=== PATIENT | female | born 1945 | race Caucasian/White ===

== ENCOUNTER 2019-05-13 11:57 | Inpatient (IN) | payer OTHER ==
[~2019-05-13] VITALS: Ht 162.6 cm; Wt 126.1 kg
[2019-05-13 12:00] VITALS: Ht 162.6 cm; Wt 126.1 kg
--- NOTE | 2019-05-13 12:05 | NUR ---
PT BIBA FROM HOME WITH CO SOB. PER PT SHE HAS BEEN FEELING SOB OVER THE LAST 3 DAYS AND TODAY WAS THE WORST DAY. PT USES BABY POWDER TO SKIN FOLDS WHERE HER ECZEMA IS AND BELIEVES " IT GOT INTO MY LUNGS." AT THIS TIME PT IS AWAKE AND ALERT. BREATHING EVEN AND UNLABORED AND ABLE TO SPEAK IN FULL SENTENCES. LUNG SOUNDS CLEAR. PT HAS HX OF COPD AND CHF. PT HAS REDNESS WHICH PT STAETS IS HER ECZEMA WHICH IS BEING TREATED AT HOME WITH CREAM THAT PT APPLIES TO SELF. PT STATES IS STARTING TO LOOK BETTER. PT ALSO TREATS IT WITH BABY POWDER. PT IS HOOKED UP TO FULL MONITORS, SIDE RAILS UP, CALL LIGHT IN REACH, WILL CONTINUE TO MONITOR.
--- NOTE | 2019-05-13 14:00 | NUR ---
PT STATES SHE IS FEELING BETTER AFTER THE BREATHING TX.
[2019-05-13 14:09] LABS: BASOPHIL % 0.8 % (0-2); CALCIUM 8.4 mg/dL (8.5-10.1); CARBON DIOXIDE 29.5 mmol/L (21-32); CHLORIDE SERUM 103 mmol/L (98-107); CREATININE SERUM 0.9 mg/dL (0.6-1.0); GLUCOSE SERUM 116 mg/dL (74-106); PLATELET COUNT 310 x10^3mcL (130-400); POTASSIUM SERUM 3.6 mmol/L (3.5-5.1); SODIUM SERUM 142 mmol/L (136-145)
[2019-05-13 14:14] LABS: ALKALINE PHOSPHATASE 103 U/L (46-116); ALT/SGPT 19 U/L (14-59); AST/SGOT 17 U/L (15-37); BILIRUBIN TOTAL 0.5 mg/dL (0.20-1.00); TOTAL PROTEIN, SERUM 7.2 g/dL (6.4-8.2)
[2019-05-13 14:35] LABS: RED CELL DISTRIBUTION WIDTH 16.2 % (11.5-14.5)
[2019-05-13] MEDS ORDERED: SYNTHROID0.15 MG PO (16:13)
[2019-05-13] MEDS ORDERED: LOSARTAN POTAS100 M1 PO (16:13)
[2019-05-13] MEDS ORDERED: AMLODIPINE BES2.5 M1 PO (16:14)
[2019-05-13] MEDS ORDERED: METOPROLOL TART25 M1 PO (16:14)
[2019-05-13] MEDS ORDERED: HYDROCHLOROTH12.5 M2 PO (16:15)
[2019-05-13] MEDS ORDERED: PEPCID20 MG PO (16:15)
[2019-05-13] MEDS ORDERED: IBUPROFEN400 MG PO (16:16)
--- NOTE | 2019-05-13 16:36 | NUR ---
REPORT GIVEN TO YULISSA COUGHLIN ON MS.T FOR FURTHER CARE OF PT
--- NOTE | 2019-05-13 16:49 | NUR ---
DR THOMPSON AID PT CAN GO UPSTAIRS WITHOUT UDS
[2019-05-13 18:54] VITALS: BP 161/75
--- NOTE | 2019-05-13 19:07 | NUR ---
RECEIVED PT FROM ER, PT ADMIT FOR ASTHMA EXACERBATION, PT IS A/O X4, VERBAL RESPONSIVE, ABLE TO TELL WHAT SHE NEEDS. LUNG SOUND DIM SOMMER, DENY ANY SOB AT THIS MOMENT, PO2 94% IN ROOM AIR. PT IS ON TELE 4, NSR, DENY ANY CHEST PAIN OR DISCOMFORT, BOWEL SOUND PRESENT ALL 4 QUADRANTS, NO DISTENTION, PEDAL PULSE PRESENT BOTH FEET, +1 EDEMA BLE. THERE IS ERYTHEMA AT ABD FOLD AND RADIATE TO BACK. IV AT LEFT WRIST, NO LEAKING, NO INFILTRAITON. ALL ADLS ASSIST, ALL NEED MET, CALL LIGHT IN REACH, WILL CONTINUE TO MONITOR.
--- NOTE | 2019-05-13 20:18 | NUR ---
PT RECIEVED FROM DAY NURSE. PT RESTING IN BED COMFORTABLY AT THIS TIME. DENIES PAIN OR DISCOMFORT. A/O X4, CALM AND COOPERATIVE AT THIS TIME. TELE 4, NSR. DENIES CP, N/V, DIZZINESS, OR PALPATATIONS. PALPABLE PUSLES, +1 PITTING EDEMA NOTED BLE. BREATHING EVEN AND UNLABORED ON RA. SPO2 96%. DENIES SOB AT THIS TIME. ABD SOFT AND ROUND, DENIES PAIN TO PALPATION. GENERALIZED WEAKNESS, AMBULATES WITH CANE. ERYTHEMA NOTED TO ABD FOLDS, RADIATES TO BACK AND BLE. IV TO LW, CDI. BED AT LOWEST POSITION. CALL LIGHT WITHIN REACH. WILL CONTINUE TO MONITOR.
[2019-05-13 22:10] VITALS: BP 152/98
[2019-05-13 22:20] VITALS: BP 152/98
--- NOTE | 2019-05-14 02:21 | NUR ---
PT RESTING IN BED AT THIS TIME. NO S/S OF PAIN OR DISTRESS NOTED. BED AT LOWEST POSITION. CALL LIGHT WITHIN REACH. WILL CONTINUE TO MONITOR. PT MED REC COMPLETE, CONTINUED MOST HOME MEDS PER . SEE EMAR.
[2019-05-14 06:46] VITALS: BP 123/44
--- NOTE | 2019-05-14 06:52 | NUR ---
PT RESTING AT SIDE OF BED COMFORTABLY AT THIS TIME. DENIES PAIN OR DISCOMFORT. ALL NEEDS MET THIS SHIFT. BED AT LOWEST POSITION. WILL ENDORSE TO DAY NURSE.
--- NOTE | 2019-05-14 07:20 | NUR ---
RECEIVED PT FROM BASIM RN. PT SITTING AT SIDE OF BED. AA/OX4. NO COMPLAINT OF PAIN. NO S/S OF ACUTE RESPIRATORY DISTRESS ON ROOM AIR. RR EVEN/UNLABORED AT THIS TIME. NO COUGH. SPEECH CLEAR. NO S/S OF ACUTE DISTRES. FALL PRECAUTIONS IN PLACE. INSTRUCTED TO USE CALL LIGHT TO CALL FOR ASSISTANCE PRN. VERBALIZED UNDERSTANDING. IV WNL TO LW, SALINE LOCKED. BED IN LOW POSITION. CALL LIGHT WITHIN REACH. SIDE RAILS UP X2. WILL CONTINUE TO MONITOR.
[2019-05-14 07:27] LABS: ALKALINE PHOSPHATASE 100 U/L (46-116); ALT/SGPT 16 U/L (14-59); AST/SGOT 12 U/L (15-37); BILIRUBIN TOTAL 0.48 mg/dL (0.20-1.00); CALCIUM 8.1 mg/dL (8.5-10.1); CARBON DIOXIDE 27.4 mmol/L (21-32); CHLORIDE SERUM 107 mmol/L (98-107); CREATININE SERUM 0.9 mg/dL (0.6-1.0); GLUCOSE SERUM 126 mg/dL (74-106); POTASSIUM SERUM 3.4 mmol/L (3.5-5.1); SODIUM SERUM 145 mmol/L (136-145); TOTAL PROTEIN, SERUM 6.9 g/dL (6.4-8.2)
[2019-05-14 07:30] LABS: ALBUMIN 2.8 g/dL (3.4-5.0)
[2019-05-14 08:15] VITALS: BP 125/67
[2019-05-14 08:22] VITALS: BP 131/61
--- NOTE | 2019-05-14 12:15 | NUR ---
PT SITTING IN CHAIR AT SIDE OF BED. ASSISTED PT TO AMBULATE. GAIT SLOW/STEADY. TOLERATED ACTIVITY WELL. NO S/S OF ACUTE DISTRESS. NO SOB ON ROOM AIR. NO COMPLAINT OF PAIN. NO N/V. NO CHEST PAIN. NO CHILLS. NO FEVER. AA/OX4. CALL LIGHT WITHIN REACH. WILL CONTINUE TO MONITOR.
[2019-05-14] MEDS ORDERED: ZITHROMAX1 GM/Packe PO (12:17)
[2019-05-14 12:21] VITALS: BP 122/50
--- NOTE | 2019-05-14 12:39 | NUR ---
BLOOD CULTURE GRAM POSITIVE COCCI, DR. BATRES AWARE. TELEPHONE ORDERS RECEIVIED FOLLOWS: VANCOMYCIN 1G IV ONE TIME, PHARMACY TO DOSE AFTER. ORDERS REPEATED BACK TO PHYSICIAN, VERIFIED. ENTERED. WILL CARRY OUT.
[2019-05-14 16:25] VITALS: BP 140/61
--- NOTE | 2019-05-14 18:33 | NUR ---
PT SITTING IN CHAIR AT SIDE OF BED EATING DINNER. AA/OX4. AMBULATORY TO RESTROOM, GAIT STEADY. VOID X1. NO S/S OF ACUTE DISTRESS. NO COMPLAINT OF PAIN. NO SOB ON ROOM AIR. NO N/V. NO BOOTH. NO DIZZINESS. CALM/COOPERATIVE. FALL PRECAUTIONS IN PLACE. IV LEAKING TO LW, PT COMPLAINT OF PAIN AT SITE, IV REMOVED, CATHETER IN TACT. PRESSURE APPLIED. IV INSERTED TO RH, 22 GAUGE. PATENT WITH BLOOD RETURN. IV ANTIBIOTICS RUNNING. CALL LIGHT WITHIN REACH. WILL ENDORSE TO ONCOMING SHIFT.
[2019-05-14 19:19] VITALS: BP 114/54
--- NOTE | 2019-05-14 19:20 | NUR ---
RECIEVED PT IN NO ACUTE DISTRESS. AOX4. TELE #4, SR. BREATHING E/U ON RA. DENIES SOB. DERMATITIS/ERYTHEMA NOTED TO BACK FOLDS, ABD FOLDS, AND PERINEAL AREA. SL TO RH, PATENT. DENIES PAIN. BED IN LOWEST POSITION, 2 SIDE RAILS UP, CALL LIGHT IN REACH. INSTRUCTED TO CALL FOR ASSISTANCE.
--- NOTE | 2019-05-15 02:00 | NUR ---
RESTING IN BED WITH EYES CLOSED. BREATHING E/U. NO ACUTE DISTRESS NOTED. WILL CONTINUE TO MONITOR.
[2019-05-15 05:45] VITALS: BP 116/49
--- NOTE | 2019-05-15 06:01 | NUR ---
PT DENIES SOB OVERNIGHT. NO ACUTE DISTRESS NOTED. NO ACUTE CHANGES. WILL ENDORSE TO ONCOMING RN.
[2019-05-15 06:56] LABS: ALKALINE PHOSPHATASE 88 U/L (46-116); ALT/SGPT 17 U/L (14-59); AST/SGOT 13 U/L (15-37); BILIRUBIN TOTAL 0.37 mg/dL (0.20-1.00); CALCIUM 8.2 mg/dL (8.5-10.1); CARBON DIOXIDE 29.5 mmol/L (21-32); CHLORIDE SERUM 105 mmol/L (98-107); CREATININE SERUM 0.9 mg/dL (0.6-1.0); GLUCOSE SERUM 167 mg/dL (74-106); MAGNESIUM 1.8 mg/dL (1.8-2.4); POTASSIUM SERUM 3.1 mmol/L (3.5-5.1); SODIUM SERUM 143 mmol/L (136-145); TOTAL PROTEIN, SERUM 6.5 g/dL (6.4-8.2)
[2019-05-15 07:03] LABS: ALBUMIN 2.6 g/dL (3.4-5.0)
--- NOTE | 2019-05-15 07:26 | NUR ---
HANDOFF REPORT RECEIVED FROM RN KANDIS. PATIENT AWAKE SITTING UP AT BEDSIDE. EUPNEIC. DENIES ANY SHORTNESS OF BREATH. CALL COYNE WITHIN REACH. INSTRUCTED TO CALL RN FOR ASSIST.
[2019-05-15 08:30] VITALS: BP 143/61
--- NOTE | 2019-05-15 10:11 | NUR ---
IN BED RESTING. NOT IN ANY DISTRESS. K. 3.1- REPLACED WITH 40MEQ KCL ORDERED.
[2019-05-15 13:17] LABS: BASOPHIL % 1.1 % (0-2); PLATELET COUNT 328 x10^3mcL (130-400)
--- NOTE | 2019-05-15 13:19 | NUR ---
WATCHING YOU TUBE. NOT IN ANY DISTRESS. CALL COYNE WITHIN REACH.
[2019-05-15 13:21] VITALS: BP 127/48
[2019-05-15 13:23] LABS: RED CELL DISTRIBUTION WIDTH 17.7 % (11.5-14.5)
[2019-05-15 16:56] VITALS: BP 127/52
--- NOTE | 2019-05-15 17:02 | NUR ---
NOTED ATRIAL FIBRILLATION ON TELEMETRY. ASYMPTOMATIC. HR 87 BPM. 12 LEAD EKG ORDERED. MD GUADARRAMA MADE AWARE.
--- NOTE | 2019-05-15 17:07 | NUR ---
12 LEAD EKG IN PROGRESS.
--- NOTE | 2019-05-15 19:26 | NUR ---
HANDOFF REPORT GIVEN TO RN KANDIS. PATIENT USING BATHROOM ON ROUNDS. INSTRUCTED TO PULL CALL LIGHT FOR ASSIST.
--- NOTE | 2019-05-15 19:40 | NUR ---
RECIEVED PT IN NO ACUTE DISTRESS. AOX4. TELE #4, AFIB, HR 70'S. BREATHING E/U ON RA. DENIES SOB. DERMATITIS/ERYTHEMA NOTED TO BACK FOLDS, ABD FOLDS, AND PERINEAL AREA. SL TO CYNTHIA, PATENT. DENIES PAIN. BED IN LOWEST POSITION, 2 SIDE RAILS UP, CALL LIGHT IN REACH. INSTRUCTED TO CALL FOR ASSISTANCE.
[2019-05-15 19:41] VITALS: BP 116/57
--- NOTE | 2019-05-16 02:01 | NUR ---
RESTING IN BED WITH EYES CLOSED. BREATHING E/U. NO ACUTE DISTRESS NOTED. WILL CONTINUE TO MONITOR.
[2019-05-16 05:37] VITALS: BP 143/66
[2019-05-16 06:44] LABS: BASOPHIL % 0.8 % (0-2); PLATELET COUNT 369 x10^3mcL (130-400)
--- NOTE | 2019-05-16 06:48 | NUR ---
IV TO CYNTHIA GAMING, DC INTACT. NEW ACCESS TO RH, 22G. NO C/O SOB OVERNIGHT. NO ACUTE DISTRESS NOTED. WILL ENDORSE TO ONCOMING RN.
[2019-05-16 06:57] LABS: ALKALINE PHOSPHATASE 86 U/L (46-116); ALT/SGPT 16 U/L (14-59); AST/SGOT 14 U/L (15-37); BILIRUBIN TOTAL 0.36 mg/dL (0.20-1.00); CALCIUM 8.3 mg/dL (8.5-10.1); CARBON DIOXIDE 31.5 mmol/L (21-32); CHLORIDE SERUM 106 mmol/L (98-107); GLUCOSE SERUM 150 mg/dL (74-106); MAGNESIUM 1.9 mg/dL (1.8-2.4); POTASSIUM SERUM 3.7 mmol/L (3.5-5.1); SODIUM SERUM 145 mmol/L (136-145); TOTAL PROTEIN, SERUM 6.7 g/dL (6.4-8.2)
[2019-05-16 07:04] LABS: ALBUMIN 2.7 g/dL (3.4-5.0)
--- NOTE | 2019-05-16 07:15 | NUR ---
RECEIVED PT FROM BASIM RN. PT FOUND RESTING IN BED. NO S/S OF ACUTE DISTRESS. NO SOB ON ROOM AIR. NO S/S OF PAIN. IV WNL TO RH, PATENT AND FLUSHES WELL. SALINE LOCKED. NO N/V. NO BOOTH. NO DIZZINESS. VS STABLE. NO SOB ON ROOM AIR. O2 SAT 95%. RR EVEN/UNLABORED. CANE AT BEDSIDE. NO S/S OF CHEST PAIN. SIDE RAILS UP X2. NO FEVER, NO CHILLS. BED IN LOW POSITION. CALL LIGHT WITHIN REACH. WILL CONTINUE TO MONITOR.
[2019-05-16 07:31] LABS: RED CELL DISTRIBUTION WIDTH 17.6 % (11.5-14.5)
[2019-05-16 08:11] VITALS: BP 126/51
--- NOTE | 2019-05-16 09:06 | NUR ---
DR. GUADARRAMA SAW PT AT BEDSIDE. AWARE OF BLOOD CX RESULTS. PT AA/OX4 LAYING IN BED. HYDRAGUARD APPLIED TO ABDOMINAL/PERINEAL SKIN FOLDS. INTERDRY APPLIED TO ABDOMEN AND PERINEAL. PT REFUSED HYDROCHLOROTHIAZIDE, PT EDUCATED ON PURPOSE OF MEDICATION AND CONTINUES TO REFUSE. DR. GUADARRAMA AWARE. NO SOB ON ROOM AIR. NO S/S OF ACUTE DISTRESS. NO CHEST PAIN. BED IN LOW POSITION. CALL LIGHT WITHIN REACH. WILL CONTINUE TO MONITOR.
[2019-05-16 10:43] VITALS: BP 149/63
[2019-05-16 11:58] VITALS: BP 140/60
[2019-05-16 14:03] VITALS: BP 140/60
--- NOTE | 2019-05-16 14:50 | NUR ---
PT DISCHARGED TO HOME. AWAKE, ALERT, ORIENTED X4. TAKEN BY WHEELCHAIR TO LOBBY BY BOOGIE OVIEDO. NO COMPLAINT OF PAIN AT THIS TIME. NO SOB ON ROOM AIR. NO CHEST PAIN. NSR ON TELE. TELE REMOVED. INTERDRY IN PLACE TO ABDOMINAL FOLDS/PERINEAL FOLDS. SEE CHART FOR DISCHARGE PICTURES. IV REMOVED FROM RH, CATHETER IN TACT. PRESSURE APPLIED. SITE WNL. DISCHARGE EDUCATION PROVIDED TO PATIENT. INSTRUCTED TO FOLLOW UP WITH PCP AT UPCOMING APPT. PT VERBALIZED UNDERSTANDING. BELONGINGS WITH PATIENT. INTERDRY PROVIDED WITH PATIENT. NO S/S OF ACUTE DISTRESS. VS STABLE. NO N/V. NO BOOTH. NO DIZZINESS.
--- NOTE | 2019-05-17 13:48 | NUR ---
WOUND CARE CONSULT NOT DONE, PT. DISCHARGED.
== END 2019-05-16 14:52 | disposition home or self-care (01) | DRG 202 ==
LOC: ED 11:57 → DU 16:11 → MU 16:11 → DU 05-14 06:19
PROVIDERS: Emergency Medicine; Internal Medicine Pulmonary Disease; ADMIT Internal Medicine
DX: J45.901 Unspecified asthma with (acute) exacerbation (principal); Z68.42 Body mass index [BMI] 45.0-49.9, adult; I10 Essential (primary) hypertension; E66.01 Morbid (severe) obesity due to excess calories; L30.4 Erythema intertrigo; Z87.440 Personal history of urinary (tract) infections
CPT/HCPCS: 83880; 90732; G0378; J0456; J1644; J3370; J7030; J7050; J7613; J7620; J7644; Q0092

== ENCOUNTER 2019-07-08 09:44 | Emergency (ER) | payer OTHER ==
[~2019-07-08] VITALS: Ht 160 cm; Wt 122.5 kg
[~2019-07-08 09:44] MED LIST: AMLODIPINE BES2.5 M1 PO; HYDROCHLOROTH12.5 M2 PO; IBUPROFEN400 MG PO; LOSARTAN POTAS100 M1 PO; METOPROLOL TART25 M1 PO; PEPCID20 MG PO; SYNTHROID0.15 MG PO; ZITHROMAX1 GM/Packe PO
[2019-07-08 09:46] VITALS: Ht 160 cm; Wt 122.5 kg
[2019-07-08 11:51] VITALS: BP 124/70
== END 2019-07-08 11:51 | disposition home or self-care (01) ==
LOC: ED 09:44
DX: S80.02XA Contusion of left knee, initial encounter (principal); S80.01XA Contusion of right knee, initial encounter; J44.9 Chronic obstructive pulmonary disease, unspecified; I11.0 Hypertensive heart disease with heart failure; I50.9 Heart failure, unspecified; Z98.890 Other specified postprocedural states; Z88.2 Allergy status to sulfonamides; Z88.1 Allergy status to other antibiotic agents; W01.0XXA Fall on same level from slipping, tripping and stumbling without subsequent striking against object, initial encounter; Y93.89 Activity, other specified; Y92.89 Other specified places as the place of occurrence of the external cause; Y99.8 Other external cause status
CPT/HCPCS: J1885

== ENCOUNTER 2019-08-08 01:08 | Emergency (ER) | payer OTHER, MEDICAID ==
[~2019-08-08] VITALS: Ht 160 cm; Wt 122.5 kg
[2019-08-08 01:28] VITALS: Ht 160 cm; Wt 122.5 kg
[2019-08-08 05:08] VITALS: BP 141/61
== END 2019-08-08 05:01 | disposition home or self-care (01) ==
LOC: ED 01:08
DX: L30.9 Dermatitis, unspecified (principal); K21.9 Gastro-esophageal reflux disease without esophagitis; Z88.2 Allergy status to sulfonamides; Z88.5 Allergy status to narcotic agent; Z88.1 Allergy status to other antibiotic agents
CPT/HCPCS: J1885; Q0162

== ENCOUNTER 2019-10-19 11:41 | Inpatient (IN) | payer OTHER, MEDICAID ==
[~2019-10-19] VITALS: Ht 160 cm; Wt 144.2 kg
[2019-10-19 11:45] VITALS: Ht 160 cm; Wt 144.2 kg
[2019-10-19] MEDS ORDERED: MACROBID100 MG PO (13:56)
--- NOTE | 2019-10-19 13:56 | NUR ---
LAB AT BEDSIDE FOR MSE.
[2019-10-19] MEDS ORDERED: KEN10 TOP (13:57)
[2019-10-19 15:02] LABS: UA SPECIFIC GRAVITY 1.015 (1.005-1.035); microscopic required? YES; urine erythrocyte 1+ (NEGATIVE)
--- NOTE | 2019-10-19 15:08 | NUR ---
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
--- NOTE | 2019-10-19 15:23 | NUR ---
PLACED PT ON 2L NC PER ABG PO2 RESULT
--- NOTE | 2019-10-19 16:00 | NUR ---
MULTIPLE ATTMEPTS MADE BY MULTIPLE NURSES AND ESCROW OFFICER FOR BLOOD DRAW WITH NO SUCCESS. DR BHAT MADE AWARE.
--- NOTE | 2019-10-19 16:02 | NUR ---
DR BHAT AT BEDSIDE TO DISCUSS POC WITH PT, DISCUSSING PLACEMENT OF CENTRAL LINE WITH PT.
--- NOTE | 2019-10-19 16:05 | NUR ---
PT SIGNED CONSENT FORM FOR CENTRAL LINE PLACEMENT. RISKS AND BENEFITS EXPLAINED TO PT BY DR BHAT, PT VERBALIZED UNDERSTANDING.
[2019-10-19 16:30] LABS: CALCIUM 8.8 mg/dL (8.5-10.1); CHLORIDE SERUM 108 mmol/L (98-107); CREATININE SERUM 0.9 mg/dL (0.6-1.0); GLUCOSE SERUM 81 mg/dL (74-106); POTASSIUM SERUM 3.7 mmol/L (3.5-5.1); SODIUM SERUM 143 mmol/L (136-145)
[2019-10-19 16:35] LABS: ALKALINE PHOSPHATASE 86 U/L (46-116); ALT/SGPT 15 U/L (14-59); AST/SGOT 19 U/L (15-37); BILIRUBIN TOTAL 0.5 mg/dL (0.20-1.00); TOTAL PROTEIN, SERUM 7.4 g/dL (6.4-8.2)
[2019-10-19 16:36] LABS: ALBUMIN 2.9 g/dL (3.4-5.0)
--- NOTE | 2019-10-19 16:52 | NUR ---
PT TEMPORARILY MOVED TO 2B FOR CENTRAL LINE PLACEMENT, DR OLSON AND DR BERGMAN, DR BHAT AT BEDSIDE FOR CENTRAL LINE PLACEMENT. TECH GREGG AT BEDSIDE.
--- NOTE | 2019-10-19 16:56 | NUR ---
PT ON FULL CM, NAD NOTED, ON 3L O2 PER PT REQUEST.
--- NOTE | 2019-10-19 17:15 | NUR ---
PER DR BHAT SUCCESSFUL INSERTION OF CENTRAL LINE, DONE BY DR BHAT.
--- NOTE | 2019-10-19 17:23 | NUR ---
DR OLSON AT BEDSIDE FOR CENTRAL LINE SUTURES.
--- NOTE | 2019-10-19 17:31 | NUR ---
US AT BEDSIDE FOR VENOUS US.
[2019-10-19 17:42] LABS: BASOPHIL % 2.1 % (0-2); PLATELET COUNT 204 x10^3mcL (130-400); RED CELL DISTRIBUTION WIDTH 18.8 % (11.5-14.5)
--- NOTE | 2019-10-19 17:46 | NUR ---
ATTEMPTED TO GIVE REPORT TO MADYSON AQUINO, STS SHE WILL CALL BACK AT [facility] TO RECEIVE REPORT.
--- NOTE | 2019-10-19 18:14 | NUR ---
REPORT GIVEN TO KENIA RN TO ASSUME CARE OF PT, INFORMED OF PT'S WOUNDS
--- NOTE | 2019-10-19 18:28 | NUR ---
PER MADYSON AQUINO, PT'S ROOM IS NOT READY, STS SHE WILL CALL WHEN ROOM IS READY.
--- NOTE | 2019-10-19 18:47 | NUR ---
CALLED MADIE ON . STATES ROOM IS NOT CLEAN AT THIS TIME. PHILIPPE CHARGE NURSE AWARE
--- NOTE | 2019-10-19 18:49 | NUR ---
PER STATISTICAL DEVELOPER JASON, "PT'S ROOM IS NOT READY YET, EVS IS STILL MOPPING".
--- NOTE | 2019-10-19 21:30 | NUR ---
RECEIVED PT FROM ER, PT ADMIT RIGHT LEG CELLULITIS. PT IS A/O X4, VERBAL RESPONSIVE. LUNG SOUND DIM SOMMER, NO S/S OF RESPIRATORY DISTRESS NOTED. PT IS ON 2L/MIN O2 VIA NC. PO2 95%, PT IS ON TELE 25, SR WITH DEPRESSED ST. DENY ANY CHEST PAIN OR DISCOMFORT. BOWEL SOUND PRESENT ALL 4 QUADRANTS, NO DISTENTION, NO TENDER. PEDAL PULSE PRESENT BOTH FEET, +1 EDEMA BLE. GARCIA CATH IN PLACE, URINE IS YELLOW. PT REFUSED TO TURN LET NURSE TO ASSESS THE SKIN AT BACK, ONLY ALLOW NURSE TO TAKE PICTURE AT FRONT. THERE IS ERYTHEMA AT ABD FOLD AND LEFT UNDER BREAST. RIGHT LOWER LEG RED AND LARGE SKIN PEEL OFF FROM LATERAL TO POSTERIOR. BUSINESS DEVELOPMENT ENGINEER, THERE IS RED DISCOLORATION AT LEFT LOWER LEG. CENTRAL LINE AT RIGHT EJ, ALL ADLS ASSIST, ALL NEED MET, CALL LIGHT IN REACH, WILL CONTINUE TO MONITOR.
[2019-10-19 23:41] VITALS: BP 132/52
--- NOTE | 2019-10-20 | NUR ---
COMPLAINED OF GEN. BODY PAIN, 5/10, MEDICATED WITH NORCO ORDERED, MADIHA. WELL. WILL CONTINUE TO MONITOR.
--- NOTE | 2019-10-20 01:51 | NUR ---
RESTING QUIETLY IN BED, WITH EYES CLOSED, APPEARS ASLEEP, EASILY AROUSABLE. RESP. EVEN AND UNLABORED. NO ACUTE DISTRESS NOTED. DUE MEDS GIVEN ORDERED, MADIHA. WELL. FALL PREC. MAINTAINED. CALL LIGHT WITHIN REACH. WILL CONTINUE TO MONITOR.
[2019-10-20 06:24] VITALS: BP 124/42
--- NOTE | 2019-10-20 06:24 | NUR ---
AFEBRILE AND VITAL SIGNS STABLE. RESP. EVEN AND UNLABORED. NO DISTRESS NOTED. DUE MEDS GIVEN ORDERED, MADIHA. WELL. GARCIA CATH INTACT AND PATENT. KEPT COMFORTABLE. NO COMPLAINTS NOTED AT THIS TIME. SR /ST ON THE MONITOR, DENIES CP OR PRESSURE. CALL LIGHT WITHIN REACH. WILL ENDORSE TO INCOMING NURSE.
--- NOTE | 2019-10-20 07:24 | NUR ---
RECIEVED PT LYING IN BED A/A. BREATHING EQUAL/UNLABORED ON 2L/NC. NO ACUTE PAIN/ DISTRESS. RIJ AND IV SITE WNL. GARCIA FLOWING TO GRAVITY. DISCUSSED THE NEED TO TAKE PICTURES OF SKIN ALTERATIONS ON BACK, PT STATED SHE DOES NOT WANT PICTURES TAKEN OF HER BACK. BED IN LOW POSITION, CALL LIGHT IN REACH, SAFETY PRECAUTIONS IN PLACE. WILL CONTINUE TO MONITOR
[2019-10-20 07:35] LABS: BASOPHIL % 0.3 % (0-2); PLATELET COUNT 270 x10^3mcL (130-400)
[2019-10-20 08:23] VITALS: BP 122/48
--- NOTE | 2019-10-20 11:58 | NUR ---
CENTRAL LINE DRESSING CHANGE DONE. ALL 3 PORTS FLUSHING WITH GOOD BLOOD RETURN. GARCIA CATHETER CARE DONE. PT SITTING UP IN BED A/A. BREATHING EQUAL/UNLABORED ON 2L/NC. NO ACUTE PAIN/ DISTRESS. IV SITE WNL. GARCIA FLOWING TO GRAVITY WITH YELLOW URINE. BED IN LOW POSITION, CALL LIGHT IN REACH, SAFETY PRECAUTIONS IN PLACE. WILL CONTINUE TO MONITOR
[2019-10-20 13:01] VITALS: BP 115/46
--- NOTE | 2019-10-20 15:51 | NUR ---
PT LYING IN BED A/A. BREATHING EQUAL/UNLABORED ON 2L/NC. NO ACUTE PAIN DISTRESS. IV SITE WNL. GARCIA FLOWING TO GRAVITY WITH YELLOW URINE. BED IN LOW POSITION, CALL LIGHT IN REACH, SAFETY PRECAUTIONS IN PLACE. WILL CONTINUE TO MONITOR
[2019-10-20 17:43] VITALS: BP 109/45
--- NOTE | 2019-10-20 18:36 | NUR ---
PT SITTING UP IN BED A/A. BREATHING EQUAL/UNLABORED ON RA. NO ACUTE PAIN/DISTRESS. IV SITES WNL. GARCIA FLOWING TO GRAVITY WITH YELLOW URINE. BED IN LOW POSITION, CALL LIGHT IN REACH, SAFETY PRECAUTIONS IN PLACE. WILL CONTINUE TO MONITOR
--- NOTE | 2019-10-20 20:00 | NUR ---
RECEIVED PT IN BED, ALERT AND ORIENTED, ABLE TO VERBALIZE NEEDS . DENIES HEADACHE/DIZZINESS. DENIES CP OR ANY DISCOMFORT AT THIS TIME. RESP. EVEN AND UNLABORED. [address], LUNG SOUNDS CLEAR, BUT DIM. AT THE BASES. HOB ELEVATED. NO ACUTE DISTRESS NOTED. RIJ TRIPLE LUMEN, INTACT AND SITE DRESSING DRY AND CLEAN. ALL PORTS PATENT. GARCIA CATH INTACT AND DRAINING YELLOW COLOR URINE. AFEBRILE AND VITAL SIGNS STABLE. ASSISTED WITH HS CARE. CALL LIGHT WITHIN REACH. WILL CONTINUE TO MONITOR.
[2019-10-20 20:06] VITALS: BP 115/46
--- NOTE | 2019-10-21 01:29 | NUR ---
ASLEEP, EASILY AROUSABLE. APPEARS COMFORTABLE. RESP. EVEN AND UNLABORED. NO ACUTE DISTRESS NOTED. WILL CONTINUE TO MONITOR.
[2019-10-21 04:43] VITALS: BP 118/62
--- NOTE | 2019-10-21 06:12 | NUR ---
SLEPT WELL. NO SIGNIFICANT CHANGE NOTED IN PT,S CONDITION. AFEBRILE AND VITAL SIGNS STABLE. RESP. EVEN AND UNLABORED. NO ACUTE DISTRESS NOTED. DENIES PAIN OR ANY DISCOMFORT AT THIS TIME. DUE MEDS GIVEN ORDERED, MADIHA. WELL. GARCIA CATH INTACT AND PATENT. CARE DONE. KEPT COMFORTABLE. CALL LIGHT WITHIN REACH. WILL CONTINUE TO MONITOR.
--- NOTE | 2019-10-21 07:20 | NUR ---
RECIEVED PT LYING IN BED A/A. BREATHING EQUAL/UNLABORED ON 2L/NC. NO ACUTE PAIN/ DISTRESS. IV SITE WNL. GARCIA FLOWING TO GRAVITY WITH YELLOW URINE. BED IN LOW POSITION, CALL LIGHT IN REACH, SAFETY PRECAUTIONS IN PLACE. WILL CONTINUE TO MONITOR
[2019-10-21 12:54] VITALS: BP 127/60
--- NOTE | 2019-10-21 13:09 | NUR ---
REASON FOR EVALUATION: LEGS AND TRUNK/ABDOMINAL WOUNDS SKIN ASSESSMENT DONE ON THIS 74 Y/O FEMALE PATIENT FROM [place] [facility], WITH INITIAL DIAGNOSIS OF LEGS PAIN. PAST MEDICAL HISTORY ASTHMA, CPOD, CHF, HTN, PT. IS AAX3. ALL ABOVE INFORMATION WAS OBTAINED FROM THE ADMISSION H&P AND PT. PATIENT IS AWAKE, ABLE TO TURN SIDE TO SIDE WITH ASSISTANCE. SKIN WARM, MOIST TO TOUCH, BLE 2+ EDEMA, NO HAIR GROWTH, LLE ARE DRY AND FLAKY, WITH FOUL ODOR. BILATERAL PEDAL PULSES PRESENT. F/C PATENT WITH <200 ML AMOUNT URINE OUTPUT OBSERVED, INCONTINENT BOWEL. INITIAL PLAN OF CARE AND PRESSURE PREVENTIVE MEASURES DISCUSSED WITH PRIMARY RN AND PT. PT. ABLE TO VERBALIZE UNDERSTANDING. PER PT. SHE HAS NO HISTORY OF PSORIASIS. INTEGUMENTARY: -TOES X10 AND INTERSPACES TINEA PEDIS -RLE VENOUS STASIS ULCER FROM LATERAL TO POSTERIOR [id number] DEPTH <0.1CM WOUND BED IS PINK, MODERATE AMOUNT SERO DRAINAGE, MILD ODOR, WOUND EDGE FLAT,RENATA WOUND SKIN ERYTHEMA, WEEPING SKIN, XEROSIS FROM ANKLE TO DORSAL FOOT. -LLE TO DORSAL FOOT WITH XEROSIS AND FLAKY SKIN, SKIN INTACT NO ERYTHEMA -INTERIGO UNDER BREASTFOLDS AND LOWER ABDOMINAL FOLDS, RIGHT AND LEFT GROINS SKIN IS RED WITH MOISTURE -RIGHT AND LEFT LATERAL TRUNK (WAIST AREA) EXTENDED TO HIPS AND BUTTOCKS AREA WITH MOISTURE ASSOCIATED DERMATITIS,MULTIPLE LARGE PLAQUE, PSORIASIS LIKED, LOOSEN SCALY DENUDED SKIN AMOUND THE PLAQUE. - SACRALCOCCYX AND R/L INNER BUTTOCKS INCONTINENT ASSOCIATED DERMATITIS, SKIN RED, INTACT FURTHUR DAMAGE INDICATED RECOMMENDATIONS: -PLEASE NO COMPRESSION TO RLE TILL INFECTION CLEAR -APPLY HYDRAGARD TO LLE, LEFT DORSAL FOOT, RIGHT ANKLE AND RIGHT DORSAL FOOT TID AND RUBY ON RAILS CONSULTANT -RLE APPLY XEROFORM, COVER WITH FOAM DRESSING AND WRAP WITH KERLIX ROLL, SECURE WITH TAPE, QD AND PRN IF SOILING. -IAD SACRALCOCCYX AND R/L INNER BUTTOCKS CLEAN WITH SOAP AND WATER, PAT DRY, APPLY THIN LAYER OF Z-GUARD BID AND PRN IF SOILING -RIGHT AND LEFT LATERAL TRUNK (WAIST AREA) EXTENDED TO HIPS AND BUTTOCKS AREA WITH MOISTURE ASSOCIATED DERMATITIS CLEANSE WITH MILD SOAP AND WATER, PAT DRY, AND APPLY TRIAMICINOLONE CREAM BID ORDERED -INTERIGO UNDER BREASTFOLDS AND LOWER ABDOMINAL FOLDS, RIGHT AND LEFT GROINS CLEANSE WITH MILD SOAP AND WATER, PAT DRY, AND APPLY TRIAMICINOLONE CREAM BID ORDERED -TURN AND REPOSITION PATIENT Q 2H -ASSESS AND MONITOR SKIN CONDITION DURING POSITION CHANGE, PLEASE PAY PARTICULAR ATTENTION TO SACRALCOCCYX, ELBOWS AND HEELS -OFFLOAD BILATERAL HEELS BY PLACING PILLOWS UNDER CALVES AT ALL TIMES, UNLESS OTHERWISE CONTRAINDICATED -PRESSURE REDISTRIBUTION SURFACE THERAPY -KEEP SKIN CLEAN AND DRY AT ALL TIMES. WILL FOLLOW UP PATIENT Q7-10 DAYS/ PRN. PLEASE CONTACT WOUND CARE NURSE FOR ANY QUESTIONS AND CHANGES IN SKIN CONDITION.
--- NOTE | 2019-10-21 15:45 | NUR ---
PT SITTING UP IN CHAIR A/A. BREATHING EQUAL/UNLABORED ON 2L/NC. NO ACUTE PAIN/ DISTRESS. IV SITE WNL. GARCIA FLOWING TO GRAVITY WITH YELLOW URINE. BED IN LOW POSITION, CALL LIGHT IN REACH, SAFETY PRECAUTIONS IN PLACE. FRIEND AT BEDSIDE. WILL CONTINUE TO MONITOR
[2019-10-21 16:50] VITALS: BP 108/38
--- NOTE | 2019-10-21 17:24 | NUR ---
BEDBATH GIVEN TO PT. PT WOUND CARE DONE PER ORDERS. GARCIA CATHETER CARE DONE. PT WIPED DOWN WITH CHG WIPES. PT ON AIR MATRESS WITH LEGS ELEVATED. WILL CONTINUE TO MONITOR
--- NOTE | 2019-10-21 18:26 | NUR ---
PT SITTING UP IN BED A/A. BREATHING EQUAL/UNLABORED ON 2L/NC. NO ACUTE PAIN/ DISTRESS. IV SITES WNL. BANDAGE TO LLE INTACT, PT DOES NOT WANT A NEW DRESSING AT THIS TIME. GARCIA FLOWING TO GRAVITY WITH YELLOW URINE. BED IN LOW POSITION, CALL LIGHT IN REACH, SAFETY PRECAUTIONS IN PLACE, WILL ENDORSE TO NIGHT NURSE
--- NOTE | 2019-10-21 20:04 | NUR ---
RECEIVED PT IN BED, RESTING, ALERT AND ORIENTED. RESP. EVEN AND UNLABORED. LUNG SOUNDS CLEAR BILAT, BUT DIM. AT THE BASES. [address], DENIES SOB. NO ACUTE DISTRESS NOTED. NO COMPLAINTS OF PAIN OR ANY DISCOMFORT AT THIS TIME. AFEBRILE AND VITAL SIGNS STABLE. RIJ TRIPLE LUMEN, INTACT AND SITE DRESSING DRY AND CLEAN. ALL PORTS PATENT. GARCIA CATH INTACT AN DRAINING YELLOW URINE. WITH MULT. WOUNDS/ERYTHEMA , DRESSINGS INTACT.ON AIR MATTRESS, BLE ELEVATED WITH PILLOWS. ASSISTED WITH HS CARE. CALL LIGHT WITHIN REACH. WILL CONTINUE TO MONITOR.
[2019-10-21 20:20] VITALS: BP 131/56
--- NOTE | 2019-10-22 00:35 | NUR ---
RESTING QUIETLY IN BED, WITH EYES CLOSED, APPEARS ASLEEP, EASILY AROUSABLE. RESP. EVEN AND UNLABORED. [address], NO ACUTE DISTRESS NOTED. WILL CONTINUE TO MONITOR.
[2019-10-22 04:22] VITALS: BP 109/46
--- NOTE | 2019-10-22 05:51 | NUR ---
COMPLAINED OF GEN. BODY PAIN, 03/01, REQUESTING PAIN MED, MEDICATED WITH MOTRIN ORDERED. WILLL CONTINUE TO MONITOR.
--- NOTE | 2019-10-22 06:38 | NUR ---
RESTING QUIETLY AT THIS TIME. PT STATES PAIN RELIEF. AFEBRILE AND VITAL SIGNS STABLE. RESP. EVEN AND UNLABORED. [address], NO ACUTE DISTRESS NOTED. DUE MEDS GIVEN ORDERED, MADIHA. WELL. KEPT COMFORTABLE. GARCIA CATH INTACT AND PATENT. CARE DONE. WILL ENDORSE TO INCOMING NURSE.
[2019-10-22 06:48] LABS: BASOPHIL % 0.8 % (0-2); PLATELET COUNT 245 x10^3mcL (130-400)
[2019-10-22 06:51] LABS: RED CELL DISTRIBUTION WIDTH 18.9 % (11.5-14.5)
--- NOTE | 2019-10-22 07:30 | NUR ---
PATIENT IS A7OX4, FOLLOWS COMMANDS AND COOPERATES WELL. PATIENT IS MEDSURG, DENIES CHSET PAIN. PERIPHERAL PULSES PALPABLE W/ +1 BLE EDEMA. LUNG SOUNDS CTA BILATERALLY, ON 2L NC, O2 SAT 97%, DENIES SOB. NORMOACTIVE BSX4. GARCIA CATHETER DRAINS CLEAR YELLOW URINE. GENERALIZED WEAKNESS, BEDREST. ERYTHEMA IN BLE, ABD FOLDS, BACK, BUTTOCKS. DENIES ANY PAIN OR DISCOMFORT AT THIS TIME. RIJ DRESSING IS CDI. WILL CONTINUE TO MONITOR.
[2019-10-22 07:34] LABS: CALCIUM 8.3 mg/dL (8.5-10.1); CARBON DIOXIDE 30.4 mmol/L (21-32); CHLORIDE SERUM 103 mmol/L (98-107); CREATININE SERUM 1.2 mg/dL (0.6-1.0); GLUCOSE SERUM 118 mg/dL (74-106); POTASSIUM SERUM 3.6 mmol/L (3.5-5.1); SODIUM SERUM 139 mmol/L (136-145)
[2019-10-22 12:22] VITALS: BP 128/42
--- NOTE | 2019-10-22 12:44 | NUR ---
PHYSICAL THERAPY NOTE PATIENT REFUSED PHYSICAL THERAPY TREATMENT 2/2 TIREDNESS. EDUCATION PROVIDED ABOUT THE IMPORTANCE OF MOBILITY, PATIENT ACKNOWLEDGED.
[2019-10-22 16:19] VITALS: BP 130/52
--- NOTE | 2019-10-22 19:09 | NUR ---
PATIENT IS CURERNTLY RESTING WHILE WATCHING TELEVISION. PATIENT DENIES ANY PAIN OR DISCOMFORT AT THIS TIME. WILL CONTINUE TO MONITOR.
--- NOTE | 2019-10-22 20:00 | NUR ---
RECEIVED PT IN BED, A/O X4. ABLE TO VERBALIZE NEEDS. RESP. EVEN AND UNLABORED.LUNG SOUNDS CLEAR, BUTL DIM. AT THE BASES. [address], DENIES SOB. AFEBRILE ND VITAL SIGNS STABLE. NO COMPLAINTS OF PAIN OR ANY DISCOMFORT AT THIS TIME. RIJ TRIPLE LUMEN, SITE DRESSING DRY AND CLEAN. ALL PORTS PATENT. GARCIA CATH INTACT AND DRAINING YELLOW URINE. ASSISTED WITH HS CARE. CALL LIGHT WITHIN REACH. WILL CONTINUE TO MONITOR.
[2019-10-22 22:51] VITALS: BP 120/56
--- NOTE | 2019-10-23 01:30 | NUR ---
ASLEEP, EASILY AROUSABLE. RESP. EVEN AND UNLABORED. [address], NO ACUTE DISTRESS NOTED. CALL LIGHT WITHIN REACH. WILL CONTINUE TO MONITOR.
[2019-10-23 05:14] VITALS: BP 131/58
--- NOTE | 2019-10-23 06:16 | NUR ---
COMPLAINED OF GEN. BODY PAIN, 5/10, MEDICATED WITH MOTRIN PO ORDERED. AFEBRILE AND VITAL SIGNS STABLE. RESP. EVEN AND UNLABORED. [address], MADIHA. WELL NO ACUTE DISTRESS NOTED. DUE MEDS GIVEN ORDERED.MADIHA. WELL. GARCIA CATH INTACT AND PATENT. CARE DONE. TURNED AND REPOSITIONED . KEPT COMFORTABLE. WILL CONTINUE TO MONITOR.
--- NOTE | 2019-10-23 07:30 | NUR ---
PATIENT IS A&OX4, FOLLOWS COMMANDS AND COOPERATES WELL. MEDSURG PATIENT AND DENIES CHEST PAIN. PERIPHERAL PULSES PALPABLE W/ +1 BLE EDEMA. ON HEPARIN. LUNG SOUNDS CTA BILATERALLY, DIMINISHED, ON 2L NC, DENIES SOB. NORMOACTIVE BSX4. GARCIA CATHETER DRAINING YELLOW URINE. GENERALIZED WEAKNESS REMAINS IN BED. ERYTHEMA IN BUTTOCKS, ABD FOLDS, BACK FOLDS, UNDER LEFT BRAST. IV SITE AND RIJ CENTRAL LINE IS CDI. WILL CONTINUE TO MONITOR.
[2019-10-23 09:09] VITALS: BP 115/49
--- NOTE | 2019-10-23 10:59 | NUR ---
PATIENT HAS BEEN INFORMED THAT SHE WILL BE TRANSPORTED TO SNF. PATIENT'S GOWN HAS BEEN CHANGED. FOELY CATHETER HAS BEEN DC PER MD ORDER. ALL QUESTIONS AND CONCERNS HAVE BEEN ADDRESSED. LEFT LOWER LEG DRESSING CHANGED. PATIENT DENIES ANY PAIN OR DISCOMFORT AT THIS TIME. WILL CONTINUE TO MONITOR AND WAIT TO GIVE REPORT TO NURSE IN [facility], AND WAIT FOR TRANSPORT.
--- NOTE | 2019-10-23 11:44 | NUR ---
PT NOTES ATTEMPTED TO SEE Pt FOR PT TX, BUT Pt REFUSED AND STATED, "I DON'T WANT WHAT YOUR SELLING." WHEN ASKED TO CLARIFY Pt STATED "I DON'T WANT PHYSICAL THERAPY. I AM LEAVING TODAY." RN WAS NOTIFIED.
--- NOTE | 2019-10-23 15:17 | NUR ---
REPORTED TO RECEIVING NURSE AT [facility]. ALL PATIENT NEEDS AND STATUS WAS ENDORSED TO THE NURSE. ALL QUESTIONS AND CONCERNS HAVE BEEN ADDRESSED.
[2019-10-23 17:46] VITALS: BP 112/52
--- NOTE | 2019-10-23 18:40 | NUR ---
[facility] HAS ARRIVED TO [facility] PATIENT. ALL QUESTIONS AND CONCERNS HAVE BEEN ADDRESSED FOR PATIENT AND TRANSPORT. CENTRAL LINE HAS BEEN REMOVED AT 1600. CATHETER IS INTACT. NO FURTHER ORDERS AT THIS TIME. WILL CONTINUE TO MONITOR.
== END 2019-10-23 18:50 | disposition short-term general hospital (02) | DRG 300 ==
LOC: ED 11:41 → DU 17:27 → MU 10-20 14:20
PROVIDERS: Emergency Medicine; ADMIT Internal Medicine Pulmonary Disease
PROC: 05HM33Z Insertion of Infusion Device into Right Internal Jugular Vein, Percutaneous Approach (ICD-10-PCS; principal; 2019-10-19)
PROC: B543ZZA Ultrasonography of Right Jugular Veins, Guidance (ICD-10-PCS; 2019-10-19)
DX: I83.209 Varicose veins of unspecified lower extremity with both ulcer of unspecified site and inflammation (principal); L03.115 Cellulitis of right lower limb; Z68.43 Body mass index [BMI] 50.0-59.9, adult; L97.919 Non-pressure chronic ulcer of unspecified part of right lower leg with unspecified severity; L97.929 Non-pressure chronic ulcer of unspecified part of left lower leg with unspecified severity; E03.9 Hypothyroidism, unspecified; M13.80 Other specified arthritis, unspecified site; I10 Essential (primary) hypertension; J44.9 Chronic obstructive pulmonary disease, unspecified; E66.01 Morbid (severe) obesity due to excess calories
CPT/HCPCS: 36600; 83880; 97530-GP; G0378; J1644; J2001; J2405; J3010; J3370; J3490; J7050; Q0092

== ENCOUNTER 2020-02-01 19:39 | Emergency (ER) | payer OTHER ==
[~2020-02-01] VITALS: Ht 167.6 cm; Wt 90.7 kg
[~2020-02-01 19:39] MED LIST changes: +KEN10 TOP; +LEVO-T150 MCG PO; +MACROBID100 MG PO; +MICROZIDE12.5 MG PO; +PEPCID AC10 M2 PO; +TIROSINT13 MCG PO; +TOPROL XL25 MG PO
[2020-02-01 19:48] VITALS: Ht 167.6 cm; Wt 90.7 kg
[2020-02-01 20:45] LABS: BASOPHIL % 0.2 % (0-2); PLATELET COUNT 332 x10^3mcL (130-400)
[2020-02-01 20:51] LABS: CALCIUM 9.4 mg/dL (8.5-10.1); CARBON DIOXIDE 21.8 mmol/L (21-32); CHLORIDE SERUM 102 mmol/L (98-107); CREATININE SERUM 1.2 mg/dL (0.6-1.0); GLUCOSE SERUM 159 mg/dL (74-106); POTASSIUM SERUM 3.3 mmol/L (3.5-5.1); SODIUM SERUM 137 mmol/L (136-145)
[2020-02-01 20:53] LABS: RED CELL DISTRIBUTION WIDTH 16.8 % (11.5-14.5)
[2020-02-02 00:13] LABS: UA SPECIFIC GRAVITY 1.025 (1.005-1.035); microscopic required? YES; urine erythrocyte TRACE (NEGATIVE)
[2020-02-02 01:31] VITALS: BP 111/50
== END 2020-02-02 01:48 | disposition home or self-care (01) ==
LOC: ED 19:39
PROVIDERS: Emergency Medicine
DX: S91.002A Unspecified open wound, left ankle, initial encounter (principal); E87.6 Hypokalemia; R42 Dizziness and giddiness; N39.0 Urinary tract infection, site not specified; J44.9 Chronic obstructive pulmonary disease, unspecified; I11.0 Hypertensive heart disease with heart failure; I50.9 Heart failure, unspecified; M19.90 Unspecified osteoarthritis, unspecified site; Z88.1 Allergy status to other antibiotic agents; Z88.2 Allergy status to sulfonamides; W22.8XXA Striking against or struck by other objects, initial encounter; Y93.89 Activity, other specified; Y92.89 Other specified places as the place of occurrence of the external cause; Y99.8 Other external cause status
CPT/HCPCS: 36415

== ENCOUNTER 2020-02-02 09:54 | Emergency (ER) | payer OTHER, SELFPAY ==
[~2020-02-02] VITALS: Ht 160 cm; Wt 97.5 kg
[2020-02-02 10:16] VITALS: Ht 160 cm; Wt 97.5 kg
[2020-02-02 13:25] VITALS: BP 101/61
== END 2020-02-02 13:25 | disposition home or self-care (01) ==
LOC: ED 09:54
DX: K62.89 Other specified diseases of anus and rectum (principal); L22 Diaper dermatitis; R42 Dizziness and giddiness; I11.0 Hypertensive heart disease with heart failure; I50.9 Heart failure, unspecified; J44.9 Chronic obstructive pulmonary disease, unspecified; M19.90 Unspecified osteoarthritis, unspecified site; Z88.1 Allergy status to other antibiotic agents; Z88.2 Allergy status to sulfonamides; Z98.890 Other specified postprocedural states
CPT/HCPCS: Q0092

== ENCOUNTER 2020-11-28 00:48 | Emergency (ER) | payer OTHER ==
[~2020-11-28] VITALS: Ht 160 cm; Wt 98.4 kg
[2020-11-28 00:59] VITALS: Ht 160 cm; Wt 98.4 kg
[2020-11-28] MEDS ORDERED: LIDODERM51 TOP (04:18)
[2020-11-28] MEDS ORDERED: VOLTAREN100 GM TOP (04:18)
[2020-11-28] MEDS ORDERED: CYCLOBENZAPRINE5 MG PO (04:18)
[2020-11-28 10:00] VITALS: BP 128/87
== END 2020-11-28 10:00 | disposition home or self-care (01) ==
LOC: ED 00:48
DX: S39.012A Strain of muscle, fascia and tendon of lower back, initial encounter (principal); J44.9 Chronic obstructive pulmonary disease, unspecified; I13.0 Hypertensive heart and chronic kidney disease with heart failure and stage 1 through stage 4 chronic kidney disease, or unspecified chronic kidney disease; N18.9 Chronic kidney disease, unspecified; M19.90 Unspecified osteoarthritis, unspecified site; E66.9 Obesity, unspecified; Z88.1 Allergy status to other antibiotic agents; Z88.2 Allergy status to sulfonamides; Z88.8 Allergy status to other drugs, medicaments and biological substances; X58.XXXA Exposure to other specified factors, initial encounter; Y93.89 Activity, other specified; Y92.091 Bathroom in other non-institutional residence as the place of occurrence of the external cause; Y99.8 Other external cause status
CPT/HCPCS: J1885